=== PATIENT | male | born 1965 | race Caucasian/White ===

== ENCOUNTER 2020-11-18 13:04 | Emergency (ER) | payer OTHER ==
[2020-11-18 13:17] VITALS: BP 125/70; PULSE 68; TEMP 98.6; BMI 25.8
[2020-11-18] MEDS ORDERED: DIPHTH,PERTUSS(ACELL),TET 0.5 ML DISP.SYRIN IM ONE ×2 (14:00→14:28)
[2020-11-18] MEDS ORDERED: CEPHALEXIN MONOHYDRATE 500 MG CAPSULE (UD) PO ONE (14:19)
[2020-11-18] MEDS ORDERED: LIDOCAINE HCL 1%, 10 MG/ML (50 mL VIAL) INF ONE (14:20)
[2020-11-18] MEDS ORDERED: ceFAZolin 2 GRAM PREMIX BAG IVPB ONE (14:27)
[2020-11-18] MEDS ORDERED: LIDOCAINE HCL 1%, 10 MG/ML (20ML VIAL) ONE (14:28)
== END 2020-11-18 17:30 | disposition home or self-care (01) ==
LOC: JER 13:04
PROC: 0HQGXZZ Repair Left Hand Skin, External Approach (ICD-10-PCS; principal; 2020-11-18)
PROC: 3E03329 Introduction of Other Anti-infective into Peripheral Vein, Percutaneous Approach (ICD-10-PCS; 2020-11-18)
PROC: 3E0234Z Introduction of Serum, Toxoid and Vaccine into Muscle, Percutaneous Approach (ICD-10-PCS; 2020-11-18)
DX: S61.012A Laceration without foreign body of left thumb without damage to nail, initial encounter (principal); S61.211A Laceration without foreign body of left index finger without damage to nail, initial encounter
CPT/HCPCS: 73130-TC-LT-FY; 90471; 90715; 99284-25

== ENCOUNTER 2020-11-26 12:14 | Emergency (ER) | payer OTHER ==
[2020-11-26 12:22] VITALS: BP 131/80; PULSE 65; TEMP 98; BMI 25.8
== END 2020-11-26 14:10 | disposition home or self-care (01) ==
LOC: JERFT 12:14
DX: Z48.02 Encounter for removal of sutures (principal)
CPT/HCPCS: 99281-25